=== PATIENT | male | born 1950 | race Caucasian/White ===

== ENCOUNTER → 2017-05-23 10:18 | Outpatient (CLI) | payer MEDICARE, SELFPAY ==
--- NOTE | 2017-05-23 | XR_ITS ---
XR wrist RT 2V HISTORY: Right wrist pain along the thumb region ORDERING PHYSICIAN: Anila Shafer PATIENT AGE: 66 years COMPARISON: None FINDINGS: No fracture or dislocation. No lytic or blastic change. There is normal mineralization.. Minimal osteoarthritic changes are present with minimal spurring at the lateral aspect of the scaphotrapezium joint. IMPRESSION: Minimal osteoarthritic change otherwise negative
== END ==
PROVIDERS: PCP Nurse Practitioner Family; Visit Provider Nurse Practitioner Family
DX: M79.641 Pain in right hand (principal)
CPT/HCPCS: 73100

== ENCOUNTER → 2019-01-15 14:06 | Outpatient (CLI) | payer MEDICARE, SELFPAY ==
--- NOTE | 2019-01-15 14:07 | CT_ITS ---
PROCEDURE: CT ABDOMEN PELVIS WO CON CLINICAL INDICATION: kidney stone Right flank pain COMPARISON: No exams were available for comparison TECHNIQUE: Axial images obtained with sagittal and coronal reformats. All CT scans at the facility use one or more dose reduction, viz: automated exposure control, ma/kV adjustment per patient size (including targeted exams where dose is matched to indication, i.e. head), or iterative reconstruction technique. FINDINGS: LOWER THORAX: There are coronary artery calcifications. ABDOMEN & PELVIS: The liver, gallbladder spleen, adrenal glands, and pancreas have an unremarkable unenhanced appearance. No renal or ureteral calculi. Hypodense nodule projects off the anterior aspect of the left kidney inferiorly at 2 cm and may represent a renal cyst and may be confirmed with ultrasound. Unremarkable appendix. No intestinal obstruction or free air. There is some haziness of the mesenteric fat in the right upper quadrant which is nonspecific. No pelvic mass abnormal fluid collection or focal inflammatory change of the pelvis. No evidence of diverticulitis.. No acute bony anomaly. There is a small umbilical hernia which contains fat IMPRESSION: 1. No acute abdominal or pelvic findings. 2. Probable 2 cm left renal cyst which may be confirmed with ultrasound. 3. Mild nonspecific haziness of the mesenteric fat in the right upper quadrant Dictated by: Roc Damian MD 01/15/2019 18:18 Electronically signed by Roc Damian MD in [place] 01/16/2019 10:33
== END ==
PROVIDERS: PCP Internal Medicine Adolescent Medicine; Visit Provider Urology
DX: N20.0 Calculus of kidney (principal)
CPT/HCPCS: 74176

== ENCOUNTER → 2019-06-15 10:34 | Outpatient (CLI) | payer MEDICARE, SELFPAY ==
--- NOTE | 2019-06-15 10:40 | CA_ITS ---
APPROVED REPORT EXAM: Comprehensive 2D, Doppler, and color-flow Echocardiogram Video Game Animator: Malu Serrato RVT Ht: 5 ft 9 in Wt: 282lbs BSA: 2.39 BP: 152/78 mmHg Indications: CHF,MURMUR,EX SMOKER,SOA,HTN,OBESITY 2D Dimensions LVOT 1.95 cm (M/F) 1.5-2.5 M-Mode Dimensions RVDd 3.40 cm (0.9-2.6) LVDd 5.68 cm (3.5-5.7) LVDs 3.49 cm (3.5-5.7) IVSd 1.07 cm (0.6-1.1) PWd 0.67 cm (0.6-1.1) EF (Teich) 68.20% FS 38.60% EDV (Teich) 158.80 mL ESV (Teich) 50.50 mL LV Diastology E/A Ratio 0.74 Mitral Valve MV A Velocity 70.00 (40-130 cm/s) Left Ventricle Left atrium is mildly enlarged, left ventricle is normal size, mild concentric left ventricular hypertrophy, visually estimated ejection fraction 55% with no regional wall motion abnormality, grade 1 diastolic dysfunction seen without tissue Doppler evidence of raise left atrial pressure. Right Ventricle Right atrium right ventricle mildly enlarged with normal contractility. Aortic Valve Aortic valve is minimally thickened and fibrosed, there is no aortic stenosis or aortic insufficiency. Mitral Valve Mitral valve is grossly normal, there is mild mitral regurgitation. Tricuspid Valve Tricuspid valve is grossly normal, there is mild tricuspid regurgitation, calculated right ventricular systolic pressure is 35 mmHg. Pulmonic Valve Pulmonic valve is minimally thickened and fibrosed, there is no pulmonic stenosis, there is mild pulmonic insufficiency. Great Vessels Aortic root is normal size. Pericardium No significant pericardial effusion noted. Conclusion 1. Mildly enlarged left atrium, normal left ventricular size, mild concentric left ventricular hypertrophy, visually estimated ejection fraction 55% with no regional wall motion abnormality, grade 1 diastolic dysfunction seen without tissue Doppler evidence of raise left atrial pressure. 2. Mildly enlarged right ventricle with normal contractility. 3. Mild mitral and tricuspid regurgitation, calculated right ventricular systolic pressure 35 mmHg. 4. No significant pericardial effusion noted. Electronically signed by : Conor Barber, 06/15/2019 11:34:14
== END ==
PROVIDERS: PCP Internal Medicine Adolescent Medicine; Visit Provider Nurse Practitioner Family
DX: I50.32 Chronic diastolic (congestive) heart failure (principal)
CPT/HCPCS: 93306

== ENCOUNTER → 2019-10-25 08:18 | Outpatient (CLI) | payer MEDICARE, SELFPAY ==
--- NOTE | 2019-10-25 08:26 | CT_ITS ---
PROCEDURE: CT ABDOMEN PELVIS W CON CLINICAL INDICATION: ABD PAIN Soa, weakness, low back pain 70ml optiray 350, 40ml saline prior 01/15/19 COMPARISON: CT CT ABDOMEN PELVIS WO CON from 01/15/2019 TECHNIQUE: IV Contrast: 75ML OPTIRAY 350 Oral Contrast None Axial images obtained with sagittal and coronal reformats. All CT scans at the facility use one or more dose reduction, viz: automated exposure control, ma/kV adjustment per patient size (including targeted exams where dose is matched to indication, i.e. head), or iterative reconstruction technique. FINDINGS: Lower thoracic images show gynecomastia and coronary artery calcifications as well as mild thickening of the pericardium anteriorly. The liver, spleen, adrenal glands, have an unremarkable appearance. There are atrophic changes of the pancreas. There are few small periportal lymph nodes which are nonspecific and unchanged. No calcified gallstones are evident. No renal calculi. There is an 2.5 cm cyst along the lower pole of the left kidney as well as a 12 mm cyst in the lower pole of the left kidney and a 10 mm cyst in the upper pole of the left kidney. Small umbilical hernia containing fat. Unremarkable appendix. No intestinal obstruction or free air. The prostate is prominent at 5.6 cm. No evidence of diverticulitis. There is some stranding of the fat along the anterior aspect of the left external iliac artery which is of questionable clinical significance. No acute bony anomalies are evident. IMPRESSION: 1. No definite acute finding. 2. Minimal stranding of the peritoneal fat in the left lower quadrant. This is of questionable clinical significance and may be a chronic finding. 3. Other nonacute findings as described above. Dictated by: Roc Damian MD 10/26/2019 08:53 Roc Damian MD in [place] 10/26/2019 08:53
--- NOTE | 2019-10-25 08:28 | CT_ITS ---
PROCEDURE: CT ANGIO CHEST CLINCIAL INDICATION: SHORTNESS OF BREATH Soa, weakness 70ml otiray 350, 40ml saline prior 11/30/16 COMPARISON: CT CTAC CTA-CHEST from 11/30/2016 TECHNIQUE: IV Contrast: 70ML OPTIRAY 350 Axial images obtained with sagittal and coronal reformats. All CT scans at the facility use one or more dose reduction, viz: automated exposure control, ma/kV adjustment per patient size (including targeted exams where dose is matched to indication, i.e. head), or iterative reconstruction technique. FINDINGS: HEART AND MEDIASTINAL STRUCTURES: No mediastinal or hilar mass or adenopathy. There is mild prominence of the main pulmonary artery measuring 3.4 cm transverse with a pulmonary artery aortic ratio of 1. The right main pulmonary artery is also slightly prominent. No evidence pulmonary embolus. No evidence of aortic aneurysm or dissection. Coronary artery calcifications are present.. There is mild thickening of the pericardium anteriorly LUNGS AND PLEURAL SPACES: There is a 6 by 3 mm subpleural nodular opacity in the right lower lobe posterior laterally. This is not readily apparent on the previous study however there was atelectatic changes on that exam which could obscure small nodule. There are fibrotic changes in the left lung base medially. A subpleural 2 mm nodules present in the lingula unchanged. There is some mild fibrotic changes in the right lung base posteriorly with some minimal honeycombing BONY STRUCTURES: No acute bony abnormalities apparent. UPPER ABDOMEN: Unremarkable. ADDITIONAL FINDINGS: No other significant abnormalities. IMPRESSION: 1. No evidence of pulmonary embolus aortic aneurysm or aortic dissection. 2. There are coronary artery calcifications. 3. Mild prominence of the pulmonary arteries which could be related to early pulmonary arterial hypertension. 4. 6 x 3 mm noncalcified nodule right lower lobe posterior laterally not readily apparent on the previous exam. Consider six-month follow-up to confirm stability Dictated by: Roc Damian MD 10/26/2019 08:41 Roc Damian MD in [place] 10/26/2019 08:41
[2019-10-25 08:40] LABS: Anion Gap 12.3 mEq/L (5-15); Blood Urea Nitrogen 16 mg/dl (9-20); Calcium 8.9 mg/dl (8.4-10.2); Carbon Dioxide 30 mmol/L (22.0-30.0); Chloride 103 mmol/L (98-107); Estimated Glomerular Filt Rate 74 ml/min (>60); GFR (African American) 89 ML/MIN (>60); Glucose 111 mg/dl (74-100); Potassium 3.3 mmoL/L (3.5-5.1); Sodium 142 mmol/L (136-145)
== END ==
PROVIDERS: PCP Internal Medicine Adolescent Medicine; Visit Provider Nurse Practitioner Family
DX: R06.02 Shortness of breath (principal); R10.32 Left lower quadrant pain
CPT/HCPCS: 36415; 71275; 74177; 80048; Q9967

== ENCOUNTER → 2020-08-06 10:19 | Outpatient (CLI) | payer MEDICARE, SELFPAY | PROVIDERS: Visit Provider Internal Medicine Gastroenterology | DX: Z01.812 Encounter for preprocedural laboratory examination (principal); Z20.822 Contact with and (suspected) exposure to COVID-19; Z12.11 Encounter for screening for malignant neoplasm of colon | CPT/HCPCS: U0003 ==

== ENCOUNTER 2020-08-08 07:29 | Day surgery (SDC) | payer MEDICARE, SELFPAY ==
[2020-07-31 08:33] VITALS: BMI 40.6
[2020-08-08 07:50] VITALS: BP 140/73; PULSE 62; RESP 20; TEMP 36.7; O2SAT 96
[2020-08-08 08:29] VITALS: O2SAT 98
--- NOTE | 2020-08-08 08:29 | HMH.PROC ---
[facility] Procedure Note Procedure Note:: Colonoscopy Procedure Report: Colonoscopy with cold snare polypectomy Endoscopist: Oneil Klein II, MD Referring physician: KELSI Antunez Date of Procedure: August 08, 2020 Equipment: Olympus 190 variable stiffness pediatric colonoscope Sedation: MAC sedation Indication: Mr. Clemens is a 69-year-old gentleman who is here for follow-up screening/surveillance colonoscopy secondary to a personal history of of adenomatous colon polyps. The patient did have a colonoscopy in July 2017 and had 5 colon polyps (ranging in size from 4 to 12 mm) which were all adenomatous. He does state that he has had polyps on each of his prior 4 colonoscopies. He reports no abdominal pain, weight loss, change in his bowel habits or rectal bleeding. He reports no family history of colon cancer. Procedure: Prior to the procedure, a history and physical exam was performed, and patient's medications and allergies were reviewed. The risks, benefits and alternatives of the sedation and procedure were discussed with the patient. All questions were answered and informed consent was obtained. The patient was brought to the procedure room. Patient identification and proposed procedure were verified by the physician and the nurse. The patient was placed in a left lateral decubitus position and the scope was passed under direct vision. Throughout the procedure, the patient's blood pressure, pulse, and oxygen saturations were monitored continuously. The colonoscopy was accomplished without difficulty. The patient tolerated the procedure well. Findings: On digital rectal examination there was normal rectal tone. There were no external hemorrhoids. The prostate was 2+, mildly firm but symmetric without nodules. The colonoscope was introduced through the anal canal to the rectum and advanced to the cecum. The ileocecal valve and appendiceal orifice were identified. The scope was advanced a short distance into the ileum which appeared grossly normal. The scope was then withdrawn into the colon. There were 11 colon polyps (cecum x8 (all 2 and 3 mm), ascending x1 (7 mm), transverse x1 (4 mm) and sigmoid x1 (5 mm)) which were all removed via cold snare polypectomy. The remaining cecum, ascending and transverse colon were grossly normal. There were scattered diverticuli throughout the descending and sigmoid colon (LEFT colon). The rectum itself was normal. Upon retroflexion within the rectum there were grade 2 internal hemorrhoids. The preparation was excellent throughout with [place] Preparation Score of 9. The cecal time was 12 minutes. Impression: 1. Colonic polyps x11 2. Left-sided diverticulosis 3. Grade 2 internal hemorrhoids Plan: I will follow up the polyp pathology and recommend repeat colonoscopy again in 3 years based upon the polyp histology. I would encourage continuation of bulking fiber supplementation on a long-term daily maintenance basis.
--- NOTE | 2020-08-08 08:37 | P.PN_ITS ---
[facility] Anesthesia Checklist - Structural Data Admitted From: Home Planned Operative Procedure/s: colonoscopy Consent for Planned Operative Procedure(s) Verified: Yes - Additional verifications Anesthesia Reactions: No - Airway Assessment C-Spine Mobility Assessed: Yes TMJ Mobility Assessed: Yes Dentition: Good Dentition - Neurological Assessment Level of Consciousness: Awake, Alert, Appropriate - Anesthesia Plan Anesthesia Risk discussed: Yes Anesthesia Plan: Verified ASA Class: III Anesthesia Type: MAC [facility] History I have reviewed the patient's past medical history: Yes Medical History: Reports:: Hyperlipidemia, Hypertension Denies:: Cancer, Diabetes Mellitus Type 1, Diabetes Mellitus Type 2, Internal Pacemaker, Lung Disease, MRSA, Seizures *Have you ever received a pneumonia vaccine?: Yes *Have you received a flu vaccine this season?: Yes Other Medical History: Reports: Other Anesthesia experience/problems:: none Other Surgeries: Yes: Cardiac Catheterization, Colonoscopy. No: Pacemaker Amputation: No Fractures: No - *Social History Last grade of school completed: Advanced degree Smoking Status: Never smoker Alcohol Intake: never Substance Use Type: denies use *Occupational Status:: retired Housing: house Household Members: spouse *Travel in the last 8 weeks: None Family Hx:: No significant family history
[2020-08-08 08:50] VITALS: BP 109/59; PULSE 65; RESP 18; TEMP 36.9; O2SAT 91
[2020-08-08 09:00] VITALS: BP 109/70; PULSE 64; RESP 18; O2SAT 95
[2020-08-08 09:10] VITALS: BP 129/71; PULSE 61; RESP 18; O2SAT 97
[2020-08-08 09:33] VITALS: BP 131/65; PULSE 67; RESP 18; O2SAT 96
== END 2020-08-08 09:35 | disposition home or self-care (01) ==
LOC: OUTP 07:30
PROVIDERS: PCP Nurse Practitioner Family; Visit Provider Internal Medicine Gastroenterology
PROC: 0DJD8ZZ Inspection of Lower Intestinal Tract, Via Natural or Artificial Opening Endoscopic (ICD-10-PCS; CPT 45378; principal; 2020-08-08 08:30)
DX: Z12.11 Encounter for screening for malignant neoplasm of colon (principal); Z86.010 Personal history of colon polyps; K63.5 Polyp of colon; K57.30 Diverticulosis of large intestine without perforation or abscess without bleeding; K64.1 Second degree hemorrhoids; I10 Essential (primary) hypertension; E78.5 Hyperlipidemia, unspecified; Z79.899 Other long term (current) drug therapy
CPT/HCPCS: 45385; 88305

== ENCOUNTER → 2020-09-05 11:48 | Outpatient (CLI) | payer MEDICARE, SELFPAY ==
--- NOTE | 2020-09-05 11:51 | XR_ITS ---
PROCEDURE: XR LUMBAR SPINE 2-3V CLINICAL INDICATION: LOW BACK PAIN COMPARISON: CT CT ABDOMEN PELVIS W CON from 10/25/2019 FINDINGS: No fracture or dislocation. No lytic or blastic change. There is normal mineralization. Normal alignment. There is degenerative disc disease at L1-L2 with anterior osteophytes. Mild degenerative disc disease L2-L3 and L3-L4. Facet arthritic changes are present at L5-S1. There is fusion of the SI joints superiorly with osteosclerosis. There is mild retrolisthesis of L1 on L2 3 mm. Vascular calcifications noted. IMPRESSION: Lumbar spondylosis as described above. Bilateral sacroiliitis Dictated by: Roc Damian MD 09/05/2020 12:20 Roc Damian MD in [place] 09/05/2020 12:20
== END ==
PROVIDERS: PCP Nurse Practitioner Family; Visit Provider Nurse Practitioner Family
DX: M54.5 Low back pain (principal)
CPT/HCPCS: 72100

== ENCOUNTER 2020-09-29 13:00 | Outpatient (RCR) | payer MEDICARE, SELFPAY | END 2020-10-21 16:16 | disposition home or self-care (01) | LOC: PT.CARL 13:00 | PROVIDERS: PCP Nurse Practitioner Family; Visit Provider Nurse Practitioner Family | DX: M54.5 Low back pain (principal) | CPT/HCPCS: 97010; 97014; 97110; 97140; 97163; G0283 ==

== ENCOUNTER 2020-10-26 10:32 | Outpatient (CLI) | payer MEDICARE, SELFPAY ==
[2020-10-26 10:55] VITALS: BP 121/63; PULSE 65; RESP 16; O2SAT 97
[2020-10-26 11:40] VITALS: BP 129/58; PULSE 70; RESP 14; TEMP 37.1; O2SAT 96
[2020-10-26 13:20] VITALS: BP 145/70; PULSE 56; RESP 20; O2SAT 96
== END 2020-10-26 13:21 | disposition home or self-care (01) ==
LOC: INF 10:33
PROVIDERS: PCP Nurse Practitioner Family; Visit Provider Nurse Practitioner Family
DX: U07.1 COVID-19 (principal)
CPT/HCPCS: 96365

== ENCOUNTER → 2021-03-25 11:22 | Outpatient (CLI) | payer MEDICARE, SELFPAY ==
--- NOTE | 2021-03-25 11:29 | XR_ITS ---
FINAL REPORT TECHNIQUE: Chest PA & Lateral CLINICAL HISTORY: PLEURODYNIA FINDINGS: 2 views of the chest were performed. The heart size is normal. The mediastinum is within normal limits. There is no acute cardiopulmonary process. There is some minimal scarring in the lung bases. There are no pleural effusions. There is no pneumothorax. The bony thorax appears intact. IMPRESSION: No acute cardiopulmonary process. Reviewed, Interpreted and Dictated by Young Alcantara MD Transcribed by Pepper Hawkins Authenticated by Young Alcantara MD on 03/25/2021 12:57:56 PM [facility]
--- NOTE | 2021-03-25 11:33 | XR_ITS ---
FINAL REPORT CLINICAL HISTORY: PLEURODYNIA FINDINGS: RIGHT RIBS Four views of the right ribs show no fractures. There is no pneumothorax or pleural fluid collection. IMPRESSION: Negative right rib series. No pneumothorax. Reviewed, Interpreted and Dictated by Young Alcantara MD Transcribed by Pepper Hawkins Authenticated by Young Alcantara MD on 03/25/2021 12:57:50 PM [facility]
--- NOTE | 2021-03-25 11:33 | XR_ITS ---
FINAL REPORT CLINICAL HISTORY: PLEURODYNIA FINDINGS: LEFT RIBS Six views of the left ribs show no fractures. There is no pneumothorax or pleural fluid collection. IMPRESSION: Negative left rib series. No pneumothorax. Reviewed, Interpreted and Dictated by Young Alcantara MD Transcribed by Pepper Hawkins Authenticated by Young Alcantara MD on 03/25/2021 12:57:55 PM [facility]
== END ==
PROVIDERS: PCP Nurse Practitioner Family; Visit Provider Nurse Practitioner Family
DX: R07.81 Pleurodynia (principal)
CPT/HCPCS: 71046; 71101

== ENCOUNTER → 2022-05-18 13:11 | Outpatient (CLI) | payer MEDICARE, SELFPAY ==
--- NOTE | 2022-05-18 | CT_ITS ---
FINAL REPORT TECHNIQUE: Axial images were obtained through the chest without contrast. CLINICAL HISTORY: DYSPNEA COMPARISON: 10/25/2019 FINDINGS: CT CHEST W/O CONTRAST There is mild scarring in the periphery of the lungs. The heart size is normal. There is no pericardial or pleural effusion. Limited images of the upper abdomen are unremarkable. The previously questioned nodular density in the posterior lateral right lower lobe is again identified on image 144 series 3, favor post inflammatory. This is unchanged since the previous exam. No other pulmonary nodule is identified. IMPRESSION: Stable nodular density in the periphery of the right lower lobe, favored to be post inflammatory. Mild scarring in the periphery of the lungs. Reviewed, Interpreted and Dictated by Young Alcantara MD Transcribed by Pepper Hawkins Authenticated and . [facility]
== END ==
PROVIDERS: PCP Nurse Practitioner Family; Visit Provider Nurse Practitioner Family
DX: R06.09 Other forms of dyspnea (principal)
CPT/HCPCS: 71250

== ENCOUNTER 2023-12-05 08:54 | Day surgery (SDC) | payer MEDICARE, SELFPAY ==
[2023-12-01 16:43] VITALS: BMI 40.6
[2023-12-05 09:24] VITALS: BP 145/73; PULSE 59; RESP 17; TEMP 36.7; O2SAT 96
[2023-12-05] MEDS: LACTATED RINGERS 1000ML 1,000 ML 25 ML IV (09:30)
--- NOTE | 2023-12-05 09:36 | P.PNANES_ITS ---
[facility] Disclaimer: The information contained in this section may have been updated after the patient was seen, as this information can be updated by other users. Medical History Hyperlipidemia Hypertension Surgical History H/O colonoscopy with polypectomy H/O cardiac catheterization H/O hernia repair Family History Other No significant family history Social History Smoking Status: Never smoker alcohol intake: never substance use type: denies use current occupational status: retired Travel in the last 8 weeks: None household members: spouse housing: house current occupational exposures/hazards: No caffeine: Yes [facility] Anesthesia Checklist Patient Identification Patient Identification: Arm Band Structural Data Admitted From: Home Planned Operative Procedure/s: Colonoscopy Consent for Planned Operative Procedure(s) Verified: Yes Verified Documents: Surgical Consent and History and Physical NPO Status Verified Time NPO: 00:00 Additional verifications Anesthesia Reactions: No Airway Assessment Mallampati Score:: Class II C-Spine Mobility Assessed: Yes TMJ Mobility Assessed: Yes Dentition: Good Dentition Neurological Assessment Level of Consciousness: Awake, Alert and Appropriate Anesthesia Plan Anesthesia Risk discussed: Yes Anesthesia Plan: Verified ASA Class: III Anesthesia Type: MAC
[2023-12-05 09:38] VITALS: O2SAT 96
--- NOTE | 2023-12-05 09:43 | P.HP_ITS ---
History of Present Illness *Admission Date: 12/05/23 *Reason for visit:: Personal history of colon polyps/surveillance *History of present illness: Mr. Clemens is a 73-year-old gentleman who is here for follow-up surveillance colonoscopy secondary to a personal history of colon polyps. The examination is deemed medically necessary for colonoscopy. The patient has been seen, interviewed and examined prior to the procedure by both myself and the anesthesia provider. [facility] Disclaimer: The information contained in this section may have been updated after the patient was seen, as this information can be updated by other users. Medical History (Updated 12/05/23 @ 09:44 by Oneil Klein II, MD) Hyperlipidemia Hypertension Surgical History H/O colonoscopy with polypectomy H/O cardiac catheterization H/O hernia repair Family History Other No significant family history Social History Smoking Status: Never smoker alcohol intake: never substance use type: denies use current occupational status: retired Travel in the last 8 weeks: None household members: spouse housing: house current occupational exposures/hazards: No caffeine: Yes Other Medical History Have you received the Flu Vaccine for this season: Yes Have you received the Pneumonia Vaccine: Yes Review of Systems Review of Systems Review of systems (narrative): Negative *Cardiovascular Comments: Negative *Gastrointestinal Comments: Negative *Genitourinary Comments: Negative *Musculoskeletal Comments: Negative *Neurologic Comments: Negative Meds Home Medications and Allergies Home Medications ?Medication ?Instructions ?Recorded ?Confirmed ?Type carvedilol 12.5 mg tablet 12.5 mg PO DAILY bp 07/26/17 12/05/23 History doxazosin 8 mg tablet 8 mg PO DAILY unk 07/26/17 12/05/23 History hydralazine 50 mg tablet 50 mg PO TID bp 07/26/17 12/05/23 History losartan 50 mg-hydrochlorothiazide 1 each PO DAILY bp 07/26/17 12/05/23 History 12.5 mg tablet potassium chloride 10 mEq 10 meq PO DAILY Supplement 07/26/17 12/05/23 History capsule,extended release amlodipine 10 mg tablet 10 mg PO DAILY High blood pressure 07/31/20 12/05/23 History isosorbide mononitrate 60 mg 60 mg PO DAILY High blood pressure 07/31/20 12/05/23 History tablet,extended release 24 hr rosuvastatin 10 mg tablet 10 mg PO DAILY Cholesterol 07/31/20 12/05/23 History New Prescriptions to Start Prescriptions: Allergies Allergy/AdvReac Type Severity Reaction Status Date / Time No Known Allergies Allergy Verified 12/05/23 09:22 Exam Data for Last 24 hours Vital signs and Labs for Last 24 Hours: Temp Pulse Resp BP Pulse Ox O2 Del Method 98.1 F 59 L 17 145/73 H 96 Room Air 12/05/23 09:24 12/05/23 09:24 12/05/23 09:24 12/05/23 09:24 12/05/23 09:24 12/05/23 09:24 *Routine HEENT Exam Head: Present normocephalic Eye: Present EOMI and PERRL ENT: Present mucous membranes moist *Routine Neck Exam Neck: Present supple *Routine Respiratory Exam Respiratory: Present CTA bilaterally *Routine Cardiovascular Exam Cardiovascular: Present RRR *Routine Abdominal Exam Abdominal: Present soft and normoactive bowel sounds; Absent tenderness *Routine Rectal Exam Rectal:: deferred *Routine Genitalia Exam Genitalia:: deferred *Routine Extremities Exam Extremities: Absent cyanosis, clubbing or edema *Routine Skin Exam Skin: Present warm; Absent rash *Routine Neurological Exam Neurological: Present alert and oriented X3 Assessment and Plan *Assessment and plan (1) Personal history of colon polyps, unspecified: Status: Acute Category: Medical Code(s): Z86.0100 - Personal history of colon polyps, unspecified Plan A/P: 1. Personal history of colon polyps is the preprocedural diagnosis. The patient will be anesthetized/sedated using MAC sedation. The patient has been seen and examined. Cardiac and lung assessment prior to the examination is stable. Proceed with planned colonoscopy
--- NOTE | 2023-12-05 09:45 | HMH.PROCNOTE ---
[facility] Procedure Note Date: 12/05/23 Time: 09:59 Procedure Note:: Colonoscopy Procedure Report: Colonoscopy with cold snare polypectomy Endoscopist: Oneil Klein II, MD Referring physician: KELSI Antunez Date of Procedure: December 05, 2023 Equipment: Olympus 190 variable stiffness pediatric colonoscope Sedation: MAC sedation Indication: Mr. Clemens is a 73-year-old gentleman who is here for follow-up screening/surveillance colonoscopy secondary to a personal history of adenomatous colon polyps. His colonoscopy in July 2017 revealed 5 polyps (ranging in size from 4 to 12 mm) which were all adenomatous. His last colonoscopy in July 2020 revealed 11 polyps (ranging in size from 2 to 7 mm) which were all adenomatous. He reports no abdominal pain, weight loss, change in his bowel habits or rectal bleeding. He reports no family history of colon cancer. Procedure: Prior to the procedure, a history and physical exam was performed, and patient's medications and allergies were reviewed. The risks, benefits and alternatives of the sedation and procedure were discussed with the patient. All questions were answered and informed consent was obtained. The patient was brought to the procedure room. Patient identification and proposed procedure were verified by the physician and the nurse. The patient was placed in a left lateral decubitus position and the scope was passed under direct vision. Throughout the procedure, the patient's blood pressure, pulse, and oxygen saturations were monitored continuously. The colonoscopy was accomplished without difficulty. The patient tolerated the procedure well. Findings: On digital rectal examination there was normal rectal tone. There were no external hemorrhoids. The prostate was 2+, smooth, soft, symmetric without nodules. The colonoscope was introduced through the anal canal to the rectum and advanced to the cecum. The ileocecal valve and appendiceal orifice were identified. The scope was advanced a short distance into the ileum which appeared grossly normal. The scope was then withdrawn into the colon. There were 2 polyps (cecum x 1 (4 mm) and sigmoid x 1 (4 mm)) which were both removed via cold snare polypectomy. The remaining cecum, ascending and transverse colon and mucosa were grossly normal. There were scattered diverticuli throughout the descending and sigmoid colon (LEFT colon). The rectum itself was normal. Upon retroflexion within the rectum there were grade 2 internal hemorrhoids. The preparation was excellent throughout with [place] Preparation Score of 9. The cecal time was 10 minutes. Impression: 1. Diminutive colonic polyps x 2 2. Left-sided diverticulosis 3. Grade 2 internal hemorrhoids Plan: I will follow-up the polyp histology. Based upon age, we will need to determine whether further surveillance colonoscopy is warranted. I would encourage continued bulking fiber supplementation.
[2023-12-05 10:02] VITALS: BP 110/48; PULSE 56; RESP 16; TEMP 37.1; O2SAT 90
[2023-12-05 10:12] VITALS: BP 125/57; PULSE 54; RESP 16; O2SAT 91
[2023-12-05 10:22] VITALS: BP 126/62; PULSE 57; RESP 16; O2SAT 95
[2023-12-05 10:29] VITALS: BP 141/69; PULSE 51; RESP 16; O2SAT 96
== END 2023-12-05 10:42 | disposition home or self-care (01) ==
PROVIDERS: PCP Nurse Practitioner Family; Visit Provider Internal Medicine Gastroenterology
PROC: 0DJD8ZZ Inspection of Lower Intestinal Tract, Via Natural or Artificial Opening Endoscopic (ICD-10-PCS; CPT 45378; principal; 2023-12-05 10:30)
DX: K63.5 Polyp of colon (principal); K57.30 Diverticulosis of large intestine without perforation or abscess without bleeding; K64.1 Second degree hemorrhoids; Z86.0100 Personal history of colon polyps, unspecified
CPT/HCPCS: 45385; 88305; J7120